=== PATIENT | male | born 1945 | race Caucasian/White ===

== ENCOUNTER 2016-11-08 12:33 | Inpatient (IN) | payer MEDICARE ==
[2016-11-08] MEDS ORDERED: LACTATED RINGERS 1,000 ML ONE (13:04)
[2016-11-08 13:16] LABS: ABSOLUTE NEUTROPHIL COUNT 14.1 K/mm3 (1.8-7.7); BASO % 0.2 % (0.2-1.0); HEMATOCRIT 43.4 % (32.0-52.0); IMM NEUT # 0.1 K/mm3 (0-0.2); IMM NEUT% 0.7 % (0-1); LYMPH # 0.3 (1.0-4.8); LYMPH % 1.8 % (15-45); MEAN CELL VOLUME 87.3 fl (80.0-94.0); MEAN CORPUSCULAR HEMOGLOBIN 30.2 pg (27.0-31.0); MEAN CORPUSCULAR HGB CONC 34.6 g/dl (33.0-37.0); MONO # 1.2 (0.0-0.8); MONO % 7.5 % (4-12); NEUT % 89.8 % (43-75); PLATELET COUNT 137 K/mm3 (130-400); RED CELL DISTRIBUTION WIDTH 14.2 % (11.5-14.5)
[2016-11-08 13:27] LABS: ALB/GLOB RATIO 1.4 (>1.0); ALBUMIN 3.9 gm/dL (3.5-5.7); CALCIUM 10.2 mg/dL (8.6-10.3)
[2016-11-08 13:30] LABS: TROPONIN I 0.05 ng/ml (0.0-0.06)
--- NOTE | 2016-11-08 13:40 | CT ---
HEAD W/O CON COMPARISON: Head CT, 10/24/2009 HISTORY: Altered level of consciousness. Found on floor. Fever. TECHNIQUE: Using a [employer] Aqu[employer] [address] scanner, images were obtained through the head. An automated dose reduction technique was used to minimize patient radiation dose. DOSE INFORMATION: CTDIvol (mGy): 51.70 DLP(mGycm): 938.90 FINDINGS: Mass: None Intracranial Hemorrhage: None Acute Infarction: None Cerebral hemispheres: Moderate atrophy has progressed compared to 2009. Low-attenuation in the white matter, extending from ventricle to the cortical surface in the right frontal lobe. Basal ganglia: Normal Thalami: Normal Brainstem: Normal Cerebellum: Normal Ventricles: Normal Basilar cisterns: Normal Corpus callosum: Normal Pituitary fossa: Normal Middle ears and mastoid air cells: Normal Orbits and sinuses: Normal orbits. Mucosal thickening in the ethmoid air cells. Skull and scalp: Normal Dural sinuses and vessels: Normal IMPRESSION: 1. No intracranial hemorrhage or cerebral edema. 2. Compared to 2009 CT, cerebral atrophy has progressed, now moderate. 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 3. Sinus mucosal disease, ethmoid sinuses. The report was sent to the emergency department [employer] medical record system 11/08/2016 at 13:42
--- NOTE | 2016-11-08 13:51 | RAD ---
CHEST - 2 VIEWS COMPARISON: Portable chest x-ray, 10/24/2009 HISTORY: Altered mental status. The patient was found down on the floor today and does not remember how he got there. FINDINGS: Views: Frontal and lateral chest Lungs: The lungs are clear and normal in volume. Heart and vessels: There is cardiomegaly with a dual-lead pacemaker. The pacemaker is new since 2008. Trachea and bronchi: Normal Mediastinum and joana: Normal Costophrenic sulci: Normal Chest wall and bones: Normal. Upper abdomen: Normal. IMPRESSION: Cardiomegaly without pulmonary edema. There is a dual-lead pacemaker.
[2016-11-08 14:05] LABS: INR 0.92; PROTHROMBIN TIME 9.7 SECONDS (9.3-11.4)
[2016-11-08] MEDS ORDERED: LIDOCAINE 2% UROJECT 10 ML ONE (14:12)
[2016-11-08 14:32] LABS: URINE BILIRUBIN NEGATIVE (NEGATIVE); URINE BLOOD 3+ (NEGATIVE); URINE GLUCOSE (UA) 3+ (NEGATIVE); URINE LEUKOCYTE ESTERASE NEGATIVE (NEGATIVE); URINE NITRITE NEGATIVE (NEGATIVE); URINE PROTEIN 2+ (NEGATIVE); URINE UROBILINOGEN NORMAL (0-1 mg/dl)
[2016-11-08 14:35] LABS: URINE APPEARANCE CLEAR; URINE COLOR YELLOW
[2016-11-08 14:41] LABS: URINE BACTERIA RARE; URINE EPITHELIAL CELLS 0-1 /hpf; URINE RBC 0-1 /hpf; URINE WBC NEG /hpf
[2016-11-08 15:07] LABS: TOTAL CELLS COUNTED 100
[2016-11-08 15:08] LABS: AMPHETAMINES/METHAMPHETAMINES NEGATIVE (NEGATIVE); COCAINE NEGATIVE (NEGATIVE); MARIJUANA NEGATIVE (NEGATIVE); METHADONE NEGATIVE (NEGATIVE); OPIATES NEGATIVE (NEGATIVE); TRICYCLIC ANTIDEPRESSANTS NEGATIVE (NEGATIVE)
[2016-11-08 15:11] LABS: ATYPICAL LYMPHOCYTE 1 %; BAND 13 % (0-10); BASOPHIL 0 % (0-1); EOSINOPHIL 0 % (1-3); LYMPHOCYTE 3 % (15-45); MONOCYTE 9 % (4-12); NEUTROPHILS 74 % (43-75); PLATELET ESTIMATE NORMAL (NORMAL)
[2016-11-08] MEDS ORDERED: SODIUM CHLORIDE 0.9% 100 ML IV PRN (16:40)
[2016-11-08] MEDS ORDERED: BISACODYL 10 MG SUP PR PRN (16:40)
[2016-11-08] MEDS ORDERED: MAGNESIUM HYDROXIDE 30 ML UDCUP PO PRN (16:40)
[2016-11-08] MEDS ORDERED: BLISTEX LIPSTICK 1 EACH TP PRN (16:40)
[2016-11-08] MEDS ORDERED: BISACODYL 5 MG TABLET.EC PO PRN (16:40)
[2016-11-08] MEDS ORDERED: MENTHOL/CETYLPYRD 1 EACH LOZENGE PO PRN (16:40)
[2016-11-08] MEDS ORDERED: SODIUM CHLORIDE 0.9% 1,000 ML IV SCH (16:45)
[2016-11-08] MEDS ORDERED: ONDANSETRON 4 MG/2ML 2 ML VIAL IV PRN (16:46)
[2016-11-08 17:00] VITALS: BMI 32.2
[2016-11-08] MEDS ORDERED: VANCOMYCIN HCL 0 G in SODIUM CHLORIDE 0.9% 250 ML IV SCH (17:00)
[2016-11-08] MEDS ORDERED: PUMP TUBING ONE (17:21)
[2016-11-08] MEDS: PIPERACILLIN-TAZO PREMIX BAG 3.375 G in Premix (D5W) 50 ml 1 EACH IV SCH ×2 (17:28→22:50)
[2016-11-08] MEDS: PANTOPRAZOLE SODIUM 40 MG VIAL IV SCH (17:32)
[2016-11-08] MEDS: INSULIN GLARGINE (DOSE) 100 UNITS/ML UNIT SUB-Q SCH (17:52)
[2016-11-08 18:04] LABS: ARTERIAL BLOOD GAS pH 7.464 (7.350-7.450)
[2016-11-08 18:05] LABS: ARTERIAL BLOOD GAS BASE EXCESS -2.6 mmol/L (-2.0-2.0); ARTERIAL BLOOD GAS HCO3 19.7 mmol/L (22.0-28.0); ARTERIAL BLOOD GAS PCO2 28.1 mmHg (35.0-45.0); ARTERIAL BLOOD GAS PO2 61.1 mmHg (80.0-90.0)
[2016-11-08] MEDS: LISINOPRIL 20 MG TABLET PO SCH (18:09)
[2016-11-08] MEDS: SODIUM CHLORIDE 0.9% 1,000 ML IV SCH (18:45)
[2016-11-08] MEDS: FLECAINIDE ACETATE 50 MG TABLET PO SCH (19:01)
[2016-11-08] MEDS: VANCOMYCIN HCL 1.25 G in SODIUM CHLORIDE 0.9% 250 ML IV SCH (19:01)
--- NOTE | 2016-11-08 19:53 | HP ---
ABRAHAM ADLER [id number] ADMIT DATE: 11/08/2016 CHIEF COMPLAINT: Altered mental status. 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 This morning at about 10:00 A.M. he was found on the carpet in the basement of their home by his . He had been last seen at about 8:00 P.M. the night before. He has been making a habit in the last few weeks of sleeping in his recliner in the basement instead of coming to bed ever since he had his pacer put in about a month ago. It was not unusual for the to not have seen him at bedtime or to have seen him first thing in the morning. When she had not seen him throughout most of the morning, however, she came down to check on him and found him on the ground. He was conscious, though seemed to be a bit lethargic and not quite himself. He felt a little bit warm, but it is unclear whether he had a true fever. He was brought to the emergency room for evaluation. In the ER he was worked-up and found to be altered, but to have no other obvious acute findings noted in the ER, other than an elevated CPK was noted, and there was concern that he may have mild rhabdomyolysis. It was elected at this point to admit him to the Hospitalist Service for further workup. REVIEW OF SYSTEMS: He complains of no headache, no visual symptoms and no difficulty swallowing. No chest pain, no shortness of breath, no cough and no heart palpitations. No abdominal pain. No change in bowel or bladder habits. No extremity weakness, numbness tingling or swelling. PAST MEDICAL HISTORY: 1. Diabetes mellitus Type-2. He is on fairly aggressive therapy, including insulin, though his sugars have been a bit [id number] lately. This was complicated by neuropathy and nephropathy as per the clinic chart. 2. Hypertension, difficult to control. He is on multiple different medications. 3. Atrial fibrillation, diagnosed just two months ago on in August of 2016. 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 This was just performed one month ago in September of 2016. 4. 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 5. Chronic kidney disease Stage-3. 6. History of encephalitis of unclear etiology back in 2008. He was initially admitted here and then transferred to [facility]. A complete neurologic workup was unremarkable. His states that his current presentation is very similar to what it was back in 2008. PAST SURGICAL HISTORY: 1. Transmetatarsal amputation of the right foot in December of 2014. 2. Appendectomy in the distant past. 3. Colonoscopy in the distant past. 4. Large left inguinal hernia repair done on 08/30/[address] Ray here at our hospital. ALLERGIES: Cat dander and pollen. CURRENT MEDICATIONS: 1. Metformin 1,000 mg by mouth twice a day. 2. [place] one to two every four hours as needed. 3. Imdur 60 mg by mouth every A.M. 4. Flecainide 50 mg by mouth every 12 hours. 5. Diltiazem CD 180 mg by mouth every day. 6. Eliquis 5 mg by mouth twice a day. 7. CoQ10 one tablet by mouth every day. 8. Lisinopril 20 mg by mouth twice a day. 9. Invokana 100 mg by mouth every day.. 10. Lantus 40 units sub-Q at bedtime. 11. Hydrochlorothiazide 25 mg by mouth every day. 12. Glucotrol 10 mg by mouth every A.M. 13. Amlodipine 10 mg by mouth twice a day. FAMILY HISTORY: Father had CAD. Mother had Alzheimer's disease and CAD. Multiple family members with diabetes. SOCIAL HISTORY: He is and lives at home with his . He has two grown children. 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 He drinks anywhere from two to four glasses of wine per day. Primary care doctor is Dr. Ayala. No tobacco or drug use. OBJECTIVE: VITAL SIGNS: In the ER he was afebrile, with a temperature of 99.5. Blood pressure 185/75. Pulse is 117 and regular. Respirations 24. His O2 is 93% on room air. GENERAL: This is a well-developed and well-nourished elderly male. He is alert, though lethargic. He is able to answer questions. He has obvious rigorous shaking. HEENT: Normocephalic, atraumatic. TMs are clear. Sclera are clear. Pupils equal, round and reactive to light. There is no nystagmus. Oropharynx is moist. No lesions. NECK: Supple, with no JVD. LUNGS: Clear, with no wheezes, rales or rhonchi. HEART: Regular rate and rhythm. No murmurs or gallops. ABDOMEN: Soft, nontender and nondistended. No rebound or guarding. EXTREMITIES: Right lower extremity is erythematous and warm to the touch over the entire gottlieb. Post-amputation changes to the right foot noted, with no disruption of the surgical site. Redness and warmth goes to just inferior to the knee. He is noted to have an abrasion on the left kneecap, though this appears to be shallow, with no surrounding redness. LABS: CBC; white count 15.7, with 74% neutrophils, 13% bands, 3% lymphs, 9% monocytes and zero percent eosinophils. Hemoglobin 15.0, hematocrit 43.4 and platelets of 137. Chemistry panel; sodium 138, potassium 4.2, chloride 104, carbon dioxide 26, BUN of 37, creatinine 1.3 and glucose of 140. Total bilirubin 0.6, AST of 27, ALT of 15 and alkaline phosphatase of 51. CPK of 1,299 and CK-MB of 4.0. Troponin of 0.05. INR is 0.92. Urinalysis; 2+ protein, 3+ glucose, 3+ blood, negative ketones, negative bilirubin, normal urobilinogen and negative leukocyte esterase. Urine drug screen is negative. Influenza A and B are negative. EKG: Shows normal sinus rhythm, with a rate of 98 beats per minute. IMAGIN. Head CT with no acute findings. No hemorrhage and no edema. He is noted to have an old infarct in the watershed area between the right anterior and right middle cerebral artery distributions. 2. Chest x-ray; normal cardiac silhouette. No infiltrates or effusions. A pacemaker is in place. ASSESSMENT: 1. Right lower extremity cellulitis. 2. Severe sepsis secondary to above. 3. Altered mental status/metabolic encephalopathy secondary to above. 4. Mild rhabdomyolysis secondary to being down for an unknown length of time. 5. Diabetes mellitus Type-2. 6. Hypertension, with a history of poor control. 7. History of recent diagnosis of atrial fibrillation, with tachy-grazyna syndrome, now status post pacer placement one month ago, and no evidence of complications. 8. Stable CAD, with no evidence of ACS. PLAN: [place] [facility] Unfortunately the sepsis diagnosis was not apparent until he was already moved out of the emergency room. We will draw blood cultures. Draw repeat lactate. He did receive aggressive IV fluid bolus in the ER, and we will continue this here. He is not hypotensive, however, his severe sepsis is manifested by his tachycardia, elevated white count with a left shift, heart rate greater than 90, as well as encephalitis/altered mental status. His lactate has not been drawn; this is pending at the time of this dictation. We will go ahead and start him on Zosyn and vancomycin. To complete his workup, I am going to check an ABG, as well as an ammonia. We will check serial cardiac enzymes given his cardiac history. For his diabetes, we will hold his usual medications and place him on basal bolus protocol. For the presumed rhabdomyolysis, we will continue with IV fluid rehydration and reevaluate lab work in the morning. DVT prophylaxis; the patient is on Eliquis, and will continue with this. Further care is dictated by clinical course. cc: Dr. Deep Villa
[2016-11-08] MEDS: APIXABAN 5 MG TABLET PO SCH (20:48)
[2016-11-09] MEDS: SODIUM CHLORIDE 0.9% 1,000 ML IV SCH ×4 (00:35→19:00)
[2016-11-09] MEDS: PIPERACILLIN-TAZO PREMIX BAG 3.375 G in Premix (D5W) 50 ml 1 EACH IV SCH ×4 (04:29→22:46)
[2016-11-09 05:38] LABS: ABSOLUTE NEUTROPHIL COUNT 10.3 K/mm3 (1.8-7.7); BASO % 0.3 % (0.2-1.0); HEMATOCRIT 40.9 % (32.0-52.0); HEMOGLOBIN 13.9 gm/l (14.0-18.0); IMM NEUT # 0.1 K/mm3 (0-0.2); IMM NEUT% 0.4 % (0-1); LYMPH # 0.5 (1.0-4.8); LYMPH % 4.7 % (15-45); MEAN CELL VOLUME 87.6 fl (80.0-94.0); MEAN CORPUSCULAR HEMOGLOBIN 29.8 pg (27.0-31.0); MEAN PLATELET VOLUME 10.5 fl (7.4-10.4); MONO # 0.6 (0.0-0.8); MONO % 5.6 % (4-12); PLATELET COUNT 115 K/mm3 (130-400); RED CELL DISTRIBUTION WIDTH 14.6 % (11.5-14.5)
[2016-11-09 05:58] LABS: ALB/GLOB RATIO 1.1 (>1.0); ALBUMIN 3.1 gm/dL (3.5-5.7)
[2016-11-09] MEDS: ACETAMINOPHEN 325 MG TABLET PO PRN ×2 (06:05→15:11)
[2016-11-09] MEDS: VANCOMYCIN HCL 1.25 G in SODIUM CHLORIDE 0.9% 250 ML IV SCH ×2 (07:58→19:32)
[2016-11-09] MEDS: FLECAINIDE ACETATE 50 MG TABLET PO SCH ×3 (08:28→20:37)
[2016-11-09] MEDS: LISINOPRIL 20 MG TABLET PO SCH ×2 (09:13→20:37)
[2016-11-09] MEDS: DILTIAZEM HCL CD 180 MG CAPSULE PO SCH (09:13)
[2016-11-09] MEDS: APIXABAN 5 MG TABLET PO SCH ×2 (09:14→20:37)
[2016-11-09] MEDS: ISOSORBIDE MONONITRATE 60 MG TAB.SR PO SCH (09:14)
--- NOTE | 2016-11-09 10:39 | PDOC43 ---
- Subjective Chief Complaint: AMS Awake this AM. Tired but at baseline MS otherwise. No c/o's. Fever to 101.8 overnight. Subjective: Reports Pain Tolerable, Reports Tolerating Diet Well, Reports Adequate Oral Intake, Denies Shortness of Breath, Denies Cough, Denies Chest Pain, Denies Abdominal Pain, Denies Nausea, Denies Vomiting - Objective Vital Signs Temperature 100.2 F 11/09/16 07:03 Pulse Rate 152 11/09/16 08:00 Respiratory Rate 19 11/09/16 07:03 Blood Pressure 180/61 11/09/16 07:03 O2 Saturation by Pulse Oximetry 79 11/09/16 08:00 Oxygen Delivery Method Room Air Oxygen Flow Rate 0 Intake and Output 11/08/16 11/09/16 11/10/16 06:59 06:59 06:59 Intake Total 6401 1000 Output Total 6520 Balance -119 1000 General: Alert, Oriented x3, Cooperative, Other (Tired.) HEENT: Atraumatic, PERRLA, EOMI, Mucous membr. moist/pink Lungs: Clear to Auscultation Bilaterally Cardiovascular: Irregular Abdomen: Soft, Normal Bowel Sounds, Non-Distended, No Tenderness Extremities: Normal Pulses, Other (RLE erythema/warmth improved since admit.) Laboratory 11/09/16 05:20 11/09/16 05:20 11/08/16 11/08/16 11/08/16 12:45 13:20 18:09 VBG Lactate 0.8 Creatine Kinase 1299 H Troponin I 0.05 Influenza A (Rapid) Negative Influenza B (Rapid) Negative 11/08/16 11/09/16 20:50 05:20 VBG Lactate 0.8 0.8 Creatine Kinase 2159 H Troponin I 0.13 H Influenza A (Rapid) Influenza B (Rapid) Current Medications: Current meds reviewed in EMR. - Problems: Assessment/Plan (1) Cellulitis Qualifiers: Site of cellulitis of extremity: lower extremity Laterality: right Status: Acute Assessment/Plan: RLE cellulitis on same limb as previous MT amputation for osteo (2014). Associated with severe sepsis and metabolic encephalopathy. Sepsis and encephalopathy appear resolved this AM. Cellulitis improved. All cx still pending. Con't current abx- Zosyn/Vanco. (2) Sepsis Qualifiers: Sepsis type: sepsis due to unspecified organism Qualifier Code: (A41.9 ) Sepsis, unspecified organism Status: Acute Assessment/Plan: Met criteria for severe sepsis at admit- not recognized initially in ER. Appears resolved this AM as above. (3) Metabolic encephalopathy Status: Acute Assessment/Plan: Resolved. As above. Similar episode of unclear etiology in 2008- transferred to [facility] at that time with extensive work-up and no etiology found. (4) Rhabdomyolysis Status: Acute Assessment/Plan: Appears to be mild with no complications. CPK up to 2100 this AM. Con't IVF and follow. (5) Atrial fibrillation Qualifiers: Atrial fibrillation type: chronic Qualifier Code: (I48.2) Chronic atrial fibrillation Status: Chronic Assessment/Plan: Chronic A fib just dx'ed in 09/12. Now s/p pacer in 10/12 (4 weeks ago). Appears stable. (6) DM2 (diabetes mellitus, type 2) Qualifiers: Chronic kidney disease stage: stage 3 (moderate) Status: Chronic Assessment/Plan: Stable. Con't basal/bolus. (7) Hypertension Qualifiers: Hypertension type: essential hypertension Qualifier Code: (I10) Essential (primary) hypertension Status: Chronic Assessment/Plan: History of difficult to control. Plan to resume usual regimen as tolerated. (8) CKD (chronic kidney disease) stage 3, GFR 30-59 ml/min Status: Chronic Assessment/Plan: At baseline. Supportive care. VTE Prophylaxis: Eliquis. Disposition: Anticipate d/c home in 2-3 days.
[2016-11-09] MEDS: LIDOCAINE 2% UROJECT 10 ML UR ONE ×2 (11:14→16:58)
[2016-11-09] MEDS ORDERED: LIDOCAINE 2% UROJECT 10 ML ONE (16:47)
[2016-11-09] MEDS: PANTOPRAZOLE SODIUM 40 MG VIAL IV SCH (16:58)
[2016-11-09] MEDS: INSULIN GLARGINE (DOSE) 100 UNITS/ML UNIT SUB-Q SCH ×2 (18:44→19:51)
[2016-11-09] MEDS: AMLODIPINE BESYLATE 5 MG TABLET PO SCH (20:37)
[2016-11-10] MEDS: SODIUM CHLORIDE 0.9% 1,000 ML IV SCH ×3 (00:49→16:13)
[2016-11-10] MEDS: PIPERACILLIN-TAZO PREMIX BAG 3.375 G in Premix (D5W) 50 ml 1 EACH IV SCH ×4 (04:19→22:15)
[2016-11-10 05:46] LABS: ABSOLUTE NEUTROPHIL COUNT 6.7 K/mm3 (1.8-7.7); BASO % 0.4 % (0.2-1.0); EOS % 0.4 % (0.9-2.9); HEMATOCRIT 37.5 % (32.0-52.0); HEMOGLOBIN 12.7 gm/l (14.0-18.0); IMM NEUT # 0.1 K/mm3 (0-0.2); IMM NEUT% 1.3 % (0-1); LYMPH # 0.8 (1.0-4.8); LYMPH % 9.2 % (15-45); MEAN CELL VOLUME 88.7 fl (80.0-94.0); MEAN CORPUSCULAR HGB CONC 33.9 g/dl (33.0-37.0); MEAN PLATELET VOLUME 11.2 fl (7.4-10.4); MONO # 0.7 (0.0-0.8); MONO % 8.4 % (4-12); NEUT % 80.3 % (43-75); PLATELET COUNT 99 K/mm3 (130-400); RED CELL DISTRIBUTION WIDTH 14.4 % (11.5-14.5)
[2016-11-10 05:50] LABS: ALBUMIN 2.7 gm/dL (3.5-5.7); CALCIUM 8.6 mg/dL (8.6-10.3)
[2016-11-10] MEDS ORDERED: IV START KIT ONE (05:56)
[2016-11-10] MEDS ORDERED: SODIUM CHLORIDE 0.9% FLUSH 10 ML ONE (05:56)
[2016-11-10 07:52] LABS: VANCOMYCIN TROUGH 9.4 ug/ml (5.0-10.0)
[2016-11-10] MEDS: VANCOMYCIN HCL 1.25 G in SODIUM CHLORIDE 0.9% 250 ML IV SCH (08:27)
[2016-11-10] MEDS: LISINOPRIL 20 MG TABLET PO SCH ×2 (08:56→21:14)
[2016-11-10] MEDS: APIXABAN 5 MG TABLET PO SCH ×2 (08:56→21:12)
[2016-11-10] MEDS: AMLODIPINE BESYLATE 5 MG TABLET PO SCH ×3 (08:56→21:15)
[2016-11-10] MEDS: ISOSORBIDE MONONITRATE 60 MG TAB.SR PO SCH (08:57)
[2016-11-10] MEDS: DILTIAZEM HCL CD 180 MG CAPSULE PO SCH (08:57)
[2016-11-10] MEDS: FLECAINIDE ACETATE 50 MG TABLET PO SCH ×2 (08:57→21:17)
[2016-11-10] MEDS ORDERED: SODIUM CHLORIDE 0.9% IV ONE ×3 (10:00)
[2016-11-10] MEDS ORDERED: VANCOMYCIN HCL IV ONE ×3 (10:00)
--- NOTE | 2016-11-10 10:54 | PDOC43 ---
- Subjective Chief Complaint: AMS complains of diarrhea Subjective: Reports Tolerating Diet Well, Denies Fever - Objective Vital Signs Temperature 98.9 F 11/10/16 07:00 Pulse Rate 69 11/10/16 07:00 Respiratory Rate 22 11/10/16 07:00 Blood Pressure 164/71 11/10/16 07:00 O2 Saturation by Pulse Oximetry 98 11/10/16 07:00 Oxygen Delivery Method Room Air Oxygen Flow Rate 0 Intake and Output 11/09/16 11/10/16 11/11/16 06:59 06:59 06:59 Intake Total 6401 5892 500 Output Total 6520 2800 Balance -119 3092 500 General: Alert, Oriented x3, Cooperative, No Acute Distress HEENT: Mucous membr. moist/pink Lungs: Clear to Auscultation Bilaterally Cardiovascular: Regular Rate and Rhythm Abdomen: Soft, Normal Bowel Sounds, Non-Distended, No Tenderness Extremities: No Edema Peripheral Pulses: Dorsalis Pedis (L): 2+, Dorsalis Pedis (R): 2+ Skin: Erythema (of right lower ext. is improving, no open wounds or drainage) Laboratory 11/10/16 05:15 11/10/16 07:20 11/10/16 11/09/16 05:15 19:48 RBC 4.23 L Anion Gap 6 L POC Capillary Glucose 167 H AST 53 H Creatine Kinase 1377 H Total Protein 5.4 L Albumin 2.7 L % Immature Granulocyt 1.3 H Current Medications: Current meds reviewed in EMR. - Problems: Assessment/Plan (1) Cellulitis Qualifiers: Site of cellulitis of extremity: lower extremity Laterality: right Status: Acute Assessment/Plan: Prsumed bacterial, organism not identified. RLE cellulitis on same limb as previous MT amputation for osteo (2015). Associated with severe sepsis and metabolic encephalopathy. Sepsis and encephalopathy appear resolved. Cellulitis improved. All cx still pending. Cont. abx- Zosyn but will stop Vanco and follow. (2) Rhabdomyolysis Status: Acute Assessment/Plan: Appears to be mild with no complications. CPK down to 1377 this AM. Stop IVF and follow. (3) Atrial fibrillation Qualifiers: Atrial fibrillation type: chronic Qualifier Code: (I48.2) Chronic atrial fibrillation Status: Chronic Assessment/Plan: Chronic A fib just dx'ed in 09/12. Now s/p pacer in 10/12 (4 weeks ago). Anticoagulated on Eliquis, rate controlled with diltiazem and flecainide. Appears stable. (4) DM2 (diabetes mellitus, type 2) Qualifiers: Chronic kidney disease stage: stage 3 (moderate) Status: Chronic Assessment/Plan: Stable. Cont. basal/bolus. (5) Hypertension Qualifiers: Hypertension type: essential hypertension Qualifier Code: (I10) Essential (primary) hypertension Status: Chronic Assessment/Plan: History of difficult to control. Plan to resume usual regimen as tolerated. (6) CKD (chronic kidney disease) stage 3, GFR 30-59 ml/min Status: Chronic Assessment/Plan: At baseline. Supportive care. VTE Prophylaxis: Eliquis. Disposition: Anticipate d/c home in 1-2 days. Stopped Vanco and will need to follow to make sure cellulitis cont. to improve. Will move to Med/Surg.
[2016-11-10] MEDS: PANTOPRAZOLE SODIUM 40 MG VIAL IV SCH (17:01)
[2016-11-10] MEDS: INSULIN ASPART (DOSE) 100 UNITS/1 ML SUB-Q PRN ×2 (18:11→22:57)
[2016-11-10] MEDS: INSULIN GLARGINE (DOSE) 100 UNITS/ML UNIT SUB-Q SCH (20:19)
[2016-11-10] MEDS ORDERED: VANCOMYCIN HCL 1.75 G in SODIUM CHLORIDE 0.9% 500 ML IV SCH (22:30)
[2016-11-11] MEDS: AMLODIPINE BESYLATE 5 MG TABLET PO SCH ×2 (02:41→09:03)
[2016-11-11] MEDS: PIPERACILLIN-TAZO PREMIX BAG 3.375 G in Premix (D5W) 50 ml 1 EACH IV SCH (05:17)
[2016-11-11 06:28] LABS: BASO # 0.1 K/mm3 (0.0-0.2); BASO % 0.7 % (0.2-1.0); EOS # 0.2 (0.0-0.5); EOS % 2.4 % (0.9-2.9); HEMATOCRIT 42.9 % (32.0-52.0); HEMOGLOBIN 13.9 gm/l (14.0-18.0); IMM NEUT% 0.3 % (0-1); LYMPH # 0.9 (1.0-4.8); LYMPH % 13.3 % (15-45); MEAN CELL VOLUME 90.7 fl (80.0-94.0); MEAN CORPUSCULAR HEMOGLOBIN 29.4 pg (27.0-31.0); MEAN CORPUSCULAR HGB CONC 32.4 g/dl (33.0-37.0); MEAN PLATELET VOLUME 10.4 fl (7.4-10.4); MONO # 0.8 (0.0-0.8); MONO % 11.6 % (4-12); NEUT % 71.7 % (43-75); PLATELET COUNT 126 K/mm3 (130-400)
[2016-11-11 06:55] LABS: CALCIUM 9.4 mg/dL (8.6-10.3)
[2016-11-11 07:49] VITALS: BP 136/66
[2016-11-11] MEDS: APIXABAN 5 MG TABLET PO SCH (09:02)
[2016-11-11] MEDS: ISOSORBIDE MONONITRATE 60 MG TAB.SR PO SCH (09:02)
[2016-11-11] MEDS: DILTIAZEM HCL CD 180 MG CAPSULE PO SCH (09:02)
[2016-11-11] MEDS: FLECAINIDE ACETATE 50 MG TABLET PO SCH (09:02)
[2016-11-11] MEDS: LISINOPRIL 20 MG TABLET PO SCH (09:02)
[2016-11-11] MEDS: INSULIN ASPART (DOSE) 100 UNITS/1 ML SUB-Q PRN (09:03)
[2016-11-11] MEDS ORDERED: AMOX 875 MG/CLAV 125 MG 1 EACH TABLET PO SCH (09:30)
--- NOTE | 2016-11-11 12:17 | DS ---
TAM ADLER DATE OF ADMISSION: November 08, 2016 DATE OF DISCHARGE: November 11, 2016 DISCHARGE DIAGNOSES: 1. Acute metabolic encephalopathy. 2. Right lower extremity bacterial cellulitis. 3. Severe sepsis, organism unknown. 4. Mild rhabdomyolysis. 5. Adult onset diabetes treated with insulin with complications of neuropathy and nephropathy. 6. Chronic essential hypertension. 7. Chronic stage 3 kidney disease. 8. Chronic atrial fibrillation with a pacemaker. 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 He was found on the floor of his home by his . He was brought to the emergency department by ambulance. He had a low-grade temperature, tachycardia with a heart rate of 117, white blood cell count elevate at 15.7 with 13% bands. Creatinine was 1.3 with a BUN of 37 and normal electrolytes. CPK was elevated at 1299. Influenza screen and drug screen were negative. CT of the head showed no acute findings. Chest x-ray was also negative. He showed evidence of a right lower extremity cellulitis. He was admitted to the intermediate care unit. He was treated with Zosyn and vancomycin. He was aggressively hydrated. He showed rapid improvement. White blood cell count improved to normal by November 10, 2016. He showed good urine output and stable renal function. He had a fever up to 101.3 on November 09, 2016 at 3:00 p.m. but was afebrile after that. He was felt to be medically stable for discharge on November 11, 2016. He was taken off of his vancomycin on November 10, 2016 and monitored overnight with continued improvement seen. PHYSICAL EXAM: VITAL SIGNS: His discharge vital signs showed a temperature of 99.4, pulse 67, blood pressure is 136/66, respirations 16, oxygen saturation 99% on room air. Body mass index 32.1. Weight is 113.4 kilograms. GENERAL: This is a slightly obese male in no acute distress. HEENT: Is unremarkable. LUNGS: Are clear to auscultation bilaterally. CARDIOVASCULAR: Exam reveals a regular rate and rhythm without a murmur. ABDOMEN: Is soft, nontender, nondistended with positive bowel sounds. EXTREMITIES: Lower extremities show some hyperpigmented areas on the anterior aspect of both lower extremities. He has diffuse erythema in the right lower extremity from the ankle to just below the knee. This is showing regression from the marked skin lines. There are no areas of fluctuance, no tenderness and no increased warmth at this point. Just some mild residual erythema. He has a transmetatarsal amputation of the right foot. No lesions on the bottom of the feet. Dorsalis pedis pulses are 2+ in both feet. LABORATORY STUDIES: CBC showed a white count of 7, hemoglobin 13.9, platelet count of 126,000 and normal differential. Chemistry profile showed a sodium 133, potassium 3.7, BUN 21, creatinine 1.1 when last checked on November 10. DISPOSITION: Home. DISCHARGE CONDITION: Good. DISCHARGE MEDICATIONS: 1. He is prescribed Augmentin. He will take 875 mg twice daily for 14 days. 2. He is going to continue with Norvasc 10 mg twice daily. 3. Glucotrol 10 mg daily in the morning. 4. Hydrochlorothiazide 25 mg daily. 5. Lantus insulin 40 units subcutaneous at bedtime. 6. Invokana 100 mg orally daily. 7. Lisinopril 20 mg orally twice daily. 8. Co-enzyme Q10 one tablet daily. 9. Eliquis 5 mg orally twice daily. 10. Cardizem CD 180 mg orally daily. 11. Flecainide 50 mg orally every 12 hours. 12. Isosorbide mononitrate 60 mg orally in the morning. 13. [place] one to two every four hours as needed for pain. 14. Metformin 1000 mg twice daily. FOLLOWUP: He will follow up with his primary care provider, Dr. Deep Ayala, as needed. Cc: Deep Ayala M.D.
== END 2016-11-11 10:30 | disposition home or self-care (01) | DRG 871 ==
LOC: ED 12:33 → ICU 14:15 → MS 11-10 19:39
PROVIDERS: ADMIT Family Medicine; ATTEND Family Medicine
DX: A41.9 Sepsis, unspecified organism (principal); G93.41 Metabolic encephalopathy; Z94.0 Kidney transplant status; M86.9 Osteomyelitis, unspecified; L03.115 Cellulitis of right lower limb; M62.82 Rhabdomyolysis; Z79.4 Long term (current) use of insulin; E11.21 Type 2 diabetes mellitus with diabetic nephropathy; E11.40 Type 2 diabetes mellitus with diabetic neuropathy, unspecified; I12.9 Hypertensive chronic kidney disease with stage 1 through stage 4 chronic kidney disease, or unspecified chronic kidney disease; E11.22 Type 2 diabetes mellitus with diabetic chronic kidney disease; N18.3 Chronic kidney disease, stage 3 (moderate); I48.91 Unspecified atrial fibrillation; Z95.0 Presence of cardiac pacemaker; Z79.84 Long term (current) use of oral hypoglycemic drugs

== ENCOUNTER 2016-12-13 19:33 | Inpatient (IN) | payer MEDICARE ==
--- NOTE | 2016-12-13 20:36 | CT ---
EXAMINATION: Noncontrast cranial CT. CLINICAL INDICATION: Severe headache. On blood thinners. TECHNIQUE: A noncontrast cranial CT scan was obtained. Axial images were acquired from just above the vertex through the skull base. 4 mm stacked axial, coronal, and sagittal reconstructions were reviewed. COMPARISONS: Exam dated 11/08/2016. FINDINGS: The CSF containing spaces are prominent throughout. There is diminished attenuation within the periventricular white matter tracts bilaterally. No acute intercranial hemorrhage, mass or mass effect is identified. No extra-axial fluid collections are detected. The visualized segments of the posterior fossa are unremarkable. The cerebellar pontine angle cisterns are symmetric. The osseous structures are intact. The paranasal sinuses are clear. The visualized portions of the orbits are unremarkable. The mastoid sinuses are normal and symmetric. IMPRESSION: Global diffuse atrophy with microvascular ischemic changes. No acute intracranial abnormalities are identified. The findings were uploaded to the electronic medical record for review at approximately 8:34 PM 12/13/2016
[2016-12-13] MEDS ORDERED: METOCLOPRAMIDE HCL 5 MG/ML 2ML VIAL ONE (20:44)
[2016-12-13] MEDS ORDERED: SODIUM CHLORIDE 0.9% 500 ML ONE ×2 (20:44→21:32)
[2016-12-13] MEDS ORDERED: MORPHINE SULFATE 4 MG/ML SYRINGE ONE ×2 (20:45→21:32)
[2016-12-13] MEDS ORDERED: DIPHENHYDRAMINE HCL 50 MG/1 ML VIAL ONE (20:45)
[2016-12-13 20:46] LABS: ABSOLUTE NEUTROPHIL COUNT 7.7 K/mm3 (1.8-7.7); BASO % 0.4 % (0.2-1.0); EOS # 0.1 (0.0-0.5); EOS % 0.8 % (0.9-2.9); HEMATOCRIT 40.8 % (32.0-52.0); HEMOGLOBIN 14.1 gm/l (14.0-18.0); IMM NEUT% 0.4 % (0-1); LYMPH # 1.5 (1.0-4.8); LYMPH % 14.4 % (15-45); MEAN CELL VOLUME 86.6 fl (80.0-94.0); MEAN CORPUSCULAR HEMOGLOBIN 29.9 pg (27.0-31.0); MEAN CORPUSCULAR HGB CONC 34.6 g/dl (33.0-37.0); MEAN PLATELET VOLUME 10.1 fl (7.4-10.4); MONO # 0.7 (0.0-0.8); MONO % 7.3 % (4-12); NEUT % 76.7 % (43-75); PLATELET COUNT 211 K/mm3 (130-400); RED CELL DISTRIBUTION WIDTH 12.5 % (11.5-14.5)
[2016-12-13 21:06] LABS: ALB/GLOB RATIO 1.1 (>1.0); ALBUMIN 3.8 gm/dL (3.5-5.7); CALCIUM 10.2 mg/dL (8.6-10.3)
[2016-12-13] MEDS ORDERED: ONDANSETRON 4 MG/2ML 2 ML VIAL ONE (21:32)
[2016-12-13] MEDS ORDERED: OXYMETAZOLINE HCL 0.05% 30 SPRAYS/BOT NS ONE (22:10)
[2016-12-13] MEDS ORDERED: HYDROMORPHONE HCL 1 MG/ML SYRINGE ONE ×2 (22:10→23:04)
[2016-12-13] MEDS ORDERED: DEXAMETHASONE SOD PHOS 10 MG/1 ML VIAL ONE (23:04)
[2016-12-13 23:17] LABS: SPECIFIC GRAVITY 1.015 (1.001-1.030); URINE BILIRUBIN NEGATIVE (NEGATIVE); URINE BLOOD TRACE (NEGATIVE); URINE GLUCOSE (UA) 3+ (NEGATIVE); URINE LEUKOCYTE ESTERASE NEGATIVE (NEGATIVE); URINE NITRITE NEGATIVE (NEGATIVE); URINE PROTEIN 2+ (NEGATIVE); URINE UROBILINOGEN NORMAL (0-1 mg/dl)
[2016-12-13 23:21] LABS: URINE APPEARANCE CLEAR; URINE COLOR STRAW
[2016-12-13 23:22] LABS: URINE BACTERIA 0; URINE EPITHELIAL CELLS 0 /hpf; URINE RBC 0-2 /hpf; URINE WBC 0-2 /hpf
[2016-12-14] MEDS ORDERED: HYDROMORPHONE HCL 1 MG/ML SYRINGE ONE (00:07)
[2016-12-14] MEDS ORDERED: BLISTEX LIPSTICK 1 EACH TP PRN (00:50)
[2016-12-14] MEDS ORDERED: MENTHOL/CETYLPYRD 1 EACH LOZENGE PO PRN (00:50)
[2016-12-14] MEDS ORDERED: SODIUM CHLORIDE 0.9% 100 ML IV PRN (00:50)
[2016-12-14] MEDS ORDERED: SODIUM CHLORIDE 0.9% FLUSH 10 ML ONE (00:52)
[2016-12-14] MEDS ORDERED: ONDANSETRON 4 MG/2ML 2 ML VIAL IV PRN (00:52)
[2016-12-14] MEDS ORDERED: INSULIN ASPART (DOSE) 100 UNITS/1 ML SUB-Q PRN (00:53)
[2016-12-14] MEDS ORDERED: SODIUM CHLORIDE 0.9% 500 ML IV SCH (01:00)
[2016-12-14] MEDS ORDERED: PUMP TUBING ONE (01:50)
[2016-12-14] MEDS: SODIUM CHLORIDE 0.9% 1,000 ML IV SCH ×2 (01:57→17:13)
[2016-12-14] MEDS: INSULIN GLARGINE (DOSE) 100 UNITS/ML UNIT SUB-Q SCH (01:58)
[2016-12-14 07:02] LABS: ABSOLUTE NEUTROPHIL COUNT 8.1 K/mm3 (1.8-7.7); BASO % 0.2 % (0.2-1.0); HEMATOCRIT 45.7 % (32.0-52.0); HEMOGLOBIN 15.7 gm/l (14.0-18.0); IMM NEUT% 0.4 % (0-1); LYMPH # 0.8 (1.0-4.8); LYMPH % 9.2 % (15-45); MEAN CELL VOLUME 86.1 fl (80.0-94.0); MEAN CORPUSCULAR HEMOGLOBIN 29.6 pg (27.0-31.0); MEAN CORPUSCULAR HGB CONC 34.4 g/dl (33.0-37.0); MEAN PLATELET VOLUME 9.8 fl (7.4-10.4); MONO # 0.1 (0.0-0.8); NEUT % 89.2 % (43-75); PLATELET COUNT 223 K/mm3 (130-400); RED CELL DISTRIBUTION WIDTH 12.5 % (11.5-14.5)
--- NOTE | 2016-12-14 07:06 | HP ---
Abraham Bedoya ADMIT DATE: 12/14/2016 CHIEF COMPLAINT: Headache. HISTORY OF PRESENT ILLNESS: Abraham is a 71-year-old male with a relatively complicated previous medical history (see below). He was recently admitted to our hospital last month with encephalitis as a result of cellulitis and sepsis. Shortly after recovering from that he developed a pseudomonas eye infection. He has been under the care of ophthalmology up at [facility]. He is on multiple different antibiotic drops including vancomycin, tobramycin, etc. In the last several days he has been developing a more severe right sided headache around the eye. He was just seen by his coin machine servicer repairer earlier in the day on 12/13/2016, however, his headache got significantly worse in the last evening hours of 12/13/2016, so he presented to the emergency room for evaluation. In the emergency room, he was worked up with a head CT and lab workup. Lab workup was unremarkable with the exception of a bump in his creatinine up to 2.1 with his baseline being closer to the low 1's. His head CT was unremarkable. Emergency room doctor did discuss the case with Dr. Thompson. She is the coin machine servicer repairer covering for the patient's regular coin machine servicer repairer Dr. Thorpe and she apparently reviewed the chart and felt that he most likely had ophthalmitis related to infection and irritation from his Tobradex and vancomycin drops. She recommended supportive care overnight with pain medications and fluids with plans to have Dr. Thorpe contact us in the morning. We have therefore elected to admit him to the hospitalist service. REVIEW OF SYSTEMS: As noted above otherwise, negative. PAST MEDICAL HISTORY: 1. 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 2. Hypertension. 3. Atrial fibrillation diagnosed 08/2016. He ended up with bradycardia and ended up getting a pacer placement for tachy-grazyna syndrome in 09/2016. 4. History of osteomyelitis to the right foot secondary to diabetes status post amputation. 5. Chronic kidney disease stage III, baseline creatinine between 1.2 and 1.5. 6. History of encephalitis of unclear etiology back in 2008, at that time he was initially admitted here and then transferred to [facility]. A complete neurologic workup was unremarkable. PAST SURGICAL HISTORY: 1. Transmetatarsal amputation of the right foot 12/2014. 2. Appendectomy in distant past. 3. Colonoscopy in distant past. 4. Large left inguinal hernia repair done 08/30/[address] Ray. ALLERGIES: CAT DANDER AND POLLEN. CURRENT MEDICATIONS: The patient does remember. He thinks he might have had a couple of changes since he was in our hospital last month. We will obtain his medication list tomorrow. FAMILY HISTORY: Father had coronary artery disease. Mother had Alzheimer's disease and coronary artery disease. Multiple family members with diabetes. SOCIAL HISTORY: He is and lives at home with his . He has two grown children. 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 He does drink 2 to 4 glasses of wine per day. No history of withdraw. Primary care doctor is Dr. Deep Ayala. OBJECTIVE: VITAL SIGNS: Stable. He is afebrile. GENERAL: Well-developed, well-nourished elderly male. He is alert, calm, pleasant sitting up in bed smiling, no distress what so ever. HEENT: Right eye with an ulcerated cornea and injected sclera. NEUROLOGIC: He is neurologically intact otherwise. NECK: Supple. LUNGS: Clear. HEART: Regular. ABDOMEN: Soft. SKIN: Clear. He has venous stasis changes at the bilateral lower extremities. There is no obvious infection, redness, or warmth. Amputation noted to the right foot. LABS: CBC with a white count of 10.1, hemoglobin 14.1, hematocrit 40.8, platelets of 211. ERS of 31. Chemistry panel 134, potassium 5.0, chloride 104, carbon dioxide 22, BUN of 51, creatinine 2.1, glucose of 292. C-reactive protein was 0.5. Troponin less than 0.01. Urinalysis 3+ glucose otherwise, clear. DIAGNOSTICS: CT of the brain showing global diffuse atrophy with microvascular ischemic changes. No acute intracranial abnormalities are identified. ASSESSMENT: 1. Ophthalmitis related to his pseudomonal infection to the eye. 2. Headache secondary to above. 3. Multiple other chronic medical problems at baseline. 4. Acute kidney injury in the context of chronic kidney disease of unclear etiology. PLAN: I have referred him to observation. We will treat him with gentle IV fluid rehydration overnight. Will avoid all nephrotoxic agents. IV medications for pain and nausea as needed. In the morning we will reevaluate with lab work and discuss this case with his coin machine servicer repairer. In the morning we will also clarify his medications and eye drops and get these resumed. Deep venous thrombosis prophylaxis not indicated. Further care dictated by his clinical course. JOB: [id number]
[2016-12-14 07:24] LABS: ALB/GLOB RATIO 1.1 (>1.0); ALBUMIN 4.1 gm/dL (3.5-5.7); CALCIUM 10.6 mg/dL (8.6-10.3)
[2016-12-14] MEDS: OXYCODONE/ACETAMINOPHEN 5/325 MG TABLET PO PRN ×2 (08:13→08:59)
[2016-12-14] MEDS: HYDROMORPHONE HCL 1 MG/ML SYRINGE IV PRN ×7 (08:59→23:36)
[2016-12-14] MEDS ORDERED: HYDROMORPHONE HCL 2 MG TABLET PO PRN (09:46)
[2016-12-14] MEDS: HYDROMORPHONE HCL 2 MG TABLET PO PRN ×6 (12:24→23:35)
--- NOTE | 2016-12-14 12:47 | DS ---
Abraham Bedoya ADMIT DATE: 12/14/2016 DISCHARGE DATE: 12/14/2016 ADMIT DIAGNOSES: 1. Ophthalmitis related to a pseudomonal infection in the right eye. 2. Severe headache secondary to above. 3. Acute kidney injury in the context of chronic kidney disease. 4. Multiple other chronic medical problems at baseline. DISCHARGE DIAGNOSES: 1. Ophthalmitis related to a pseudomonal infection in the right eye. 2. Severe headache secondary to above. 3. Acute kidney injury in the context of chronic kidney disease. 4. Multiple other chronic medical problems at baseline. 5. Resolution of acute kidney injury. ADMIT HISTORY AND PHYSICAL: Please see my dictated note for details. Briefly, Mr. Bedoya is a 71-year-old male. In the last two weeks he has been diagnosed with a pseudomonas infection in the eye and he is being followed by Dr. Maurilio kay at [facility]. He is on multiple different antibiotics drops and other ophthalmic drops. He has had a right sided headache that has been progressively worsening over the last week or so. He was actually seen on the morning of 12/13/2016 by his broomcorn seeder and it appeared that everything was clearing appropriately in the eye, however, on the late evening of 12/13/2016 he had worsening of his right sided headache. In the emergency room, he was worked up with a head CT. He had an unremarkable sed rate and CRP. He did have a mild bump in his creatinine up to 2.1 with the baseline being in the mid 1's. Emergency room physician did talk with an broomcorn seeder up at [facility] who recommended supportive care overnight here and contacting the patient's regular broomcorn seeder in the morning. HOSPITAL COURSE: He was admitted. His pain was controlled with IV Dilaudid and he actually had a very good night. On the morning of discharge his creatinine had returned to baseline. He was feeling well. He was not getting relief from Percocet and did require again IV Dilaudid and we have elected to transition him to oral Dilaudid upon discharge. On the morning of 12/14/2015 I did discuss his case with his broomcorn seeder, Dr. Maurilio kay at [facility]. He felt that Mr. Bedoya was safe to discharge home with appropriate medication for pain and nausea with plans for follow up next week as scheduled. DISCHARGE MEDICATIONS: 1. Hydromorphone 2 mg tablets 1 to 3 tablets every 4 hours as needed for pain, #90 with no refills. 2. Promethazine 25 mg tablets 1 tablet by mouth every 4 hours as needed for nausea, #30 with no refills. All other medications as prior to admit as follows: 1. Glipizide 10 mg by mouth daily. 2. Lantus 40 units subcutaneous every bedtime. 3. Metformin 1000 by mouth twice daily. 4. Co-Q 10 daily. 5. Invokana 100 mg by mouth daily. 6. Hydrochlorothiazide 25 mg by mouth daily. 7. Eliquis 5 mg by mouth twice daily. 8. Amlodipine 10 mg by mouth twice daily. 9. Diltiazem 180 by mouth daily. 10. Lisinopril 20 mg by mouth twice daily. 11. Cleocin 150 by mouth four times daily. 12. Cyclogyl drops as prior to admit. 13. Doxycycline 100 mg by mouth twice daily. 14. Vancomycin drops as prior to admit. 15. Moxifloxacin drops as prior to admit. 16. Prednisolone drops as prior admit. 17. Tobramycin drops as prior to admit. 18. Triamcinolone topically as needed. 19. Imdur 60 mg by mouth every morning. DISCHARGE FOLLOW UP: Will be with Dr. Thorpe at the [facility] next week as scheduled. Follow up with Dr. Ayala as needed. JOB: [id number] CC: Dr. Deep Thorpe at [facility] in [place]
[2016-12-14 19:21] VITALS: BMI 30.4
[2016-12-14] MEDS: ACETAMINOPHEN 325 MG TABLET PO PRN (19:36)
[2016-12-14] MEDS: INSULIN ASPART (DOSE) 100 UNITS/1 ML SUB-Q PRN (23:36)
[2016-12-15] MEDS: INSULIN GLARGINE (DOSE) 100 UNITS/ML UNIT SUB-Q SCH (01:22)
[2016-12-15] MEDS: HYDROMORPHONE HCL 1 MG/ML SYRINGE IV PRN ×10 (01:54→18:13)
[2016-12-15] MEDS: HYDROMORPHONE HCL 2 MG TABLET PO PRN ×7 (03:35→18:13)
[2016-12-15] MEDS: CLINDAMYCIN HCL 150 MG CAPSULE PO SCH ×2 (08:56→13:28)
[2016-12-15] MEDS ORDERED: AMLODIPINE BESYLATE 5 MG TABLET PO SCH (09:00)
[2016-12-15] MEDS ORDERED: DOXYCYCLINE HYCLATE 100 MG TABLET PO SCH (09:00)
[2016-12-15] MEDS ORDERED: APIXABAN 5 MG TABLET PO SCH (09:00)
[2016-12-15] MEDS ORDERED: TOBRAMYCIN SULFATE 0.3% OD SCH (09:00)
[2016-12-15] MEDS ORDERED: HYDROCHLOROTHIAZIDE 25 MG TABLET PO SCH (09:00)
[2016-12-15] MEDS ORDERED: [UNRECOGNIZED DRUG - OTHER] OD SCH (09:00)
[2016-12-15] MEDS ORDERED: [UNRECOGNIZED DRUG - OTHER] OD SCH (09:00)
[2016-12-15] MEDS: MOXIFLOXACIN HCL OD SCH ×2 (09:00→15:19)
[2016-12-15] MEDS ORDERED: GLIPIZIDE 10 MG TABLET PO SCH (09:00)
[2016-12-15] MEDS ORDERED: METFORMIN HCL 1,000 MG TABLET PO SCH (09:00)
[2016-12-15] MEDS ORDERED: LISINOPRIL 20 MG TABLET PO SCH (09:00)
[2016-12-15] MEDS ORDERED: CYCLOPENTOLATE HCL 1% 40 GTTS/2 ML BOT SOLN.DROP OD SCH (09:00)
[2016-12-15] MEDS ORDERED: TRIAMCINOLONE ACET CREAM 0.1% 30 APPLIC/15 G TUBE TP SCH (09:00)
[2016-12-15] MEDS ORDERED: DILTIAZEM HCL CD 180 MG CAPSULE PO SCH (09:00)
[2016-12-15] MEDS ORDERED: (Canagliflozin [Invokana] 100 MG) PO SCH ×2 (09:00→10:00)
[2016-12-15] MEDS ORDERED: ISOSORBIDE MONONITRATE 60 MG TAB.SR PO SCH (09:00)
[2016-12-15] MEDS ORDERED: VANCOMYCIN 25 MG/ML OD SCH (10:00)
[2016-12-15] MEDS: TOBRAMYCIN OD SCH ×2 (10:00→15:20)
[2016-12-15] MEDS: [UNRECOGNIZED DRUG - OTHER] OD SCH ×3 (11:55→15:19)
[2016-12-15] MEDS: INSULIN ASPART (DOSE) 100 UNITS/1 ML SUB-Q PRN ×2 (12:27→17:12)
[2016-12-15] MEDS: ACETAMINOPHEN 325 MG TABLET PO PRN (14:14)
[2016-12-15 15:02] VITALS: BP 145/74
[2016-12-15] MEDS ORDERED: BISACODYL 10 MG SUP PR PRN (15:28)
[2016-12-15] MEDS ORDERED: DOCUSATE SODIUM 100 MG CAPSULE PO SCH (15:30)
--- NOTE | 2016-12-15 15:33 | CT ---
ORBIT, TEMP BONES W/O CON COMPARISON: CT head, 12/13/2016 HISTORY: Right periorbital cellulitis Technique: Using a [employer] Aquilion [address] scanner, images were obtained through the temporal bones. No intravenous contrast. An automated dose reduction technique was used to minimize patient radiation dose. Dose information: CTDIvol (mGy): 28.80 DLP(mGycm): 567.80 FINDINGS: Right ORBIT: Superficial periorbital soft tissue swelling. The retro-orbital fat is normal. The optic globes, optic nerve, and extraocular muscles are normal. Left orbit: Normal. Paranasal sinuses: Hypoplastic frontal sinus. Normal ethmoid sinuses. Normal right maxillary sinus with a small mucous retention cyst in floor the left maxillary sinus. Normal sphenoid sinus. Nasal passages: Normal. Facial bones: Normal. Heart,: Normal. Teeth: Extensive dental hardware. Mandible: Normal. Temporomandibular joints: Normal. Airway: Normal. Tongue: Normal. Salivary glands: Normal. Muscles: Normal. IMPRESSION: 1. Superficial right periorbital soft tissue swelling/cellulitis. The results were discussed with Paramjit Zamora 12/15/2016 at 15:30
[2016-12-15] MEDS ORDERED: IV START KIT ONE (16:05)
[2016-12-15] MEDS ORDERED: SODIUM CHLORIDE 0.9% FLUSH 10 ML ONE (16:05)
[2016-12-15] MEDS ORDERED: PUMP TUBING ONE (16:06)
[2016-12-15] MEDS ORDERED: SODIUM CHLORIDE 0.9% 250 ML IV ONE (16:07)
[2016-12-15] MEDS ORDERED: PIPERACILLIN SODIUM/TAZOBACTAM 3.375 G in NS 0.9% (MINI-BAG PLUS) 50 ML IV SCH (16:30)
[2016-12-15] MEDS ORDERED: VANCOMYCIN HCL 2 G in SODIUM CHLORIDE 0.9% 500 ML IV ONE (17:00)
[2016-12-15] MEDS ORDERED: VANCOMYCIN HCL 2 G in SODIUM CHLORIDE 0.9% 500 ML IV SCH (17:00)
--- NOTE | 2016-12-15 18:24 | TS ---
TAM ADLER [id number] DATE OF ADMISSION: 12/13/2016 DATE OF TRANSFER: 12/15/2016 TRANSFERRING DIAGNOSES: 1. Ophthalmitis, with preseptal cellulitis involving the right eye. 2. Severe headache. THE ACCEPTING FACILITY: [facility]. THE ACCEPTING PHYSICIAN: Dr. Patterson. OTHER DIAGNOSES: Include: 1. Acute kidney injury. 2. Adult-onset diabetes, complicated by neuropathy and nephropathy, treated with insulin long-term. 3. Chronic essential hypertension. 4. History of paroxysmal atrial fibrillation. 5. Chronic Stage-3 kidney disease, with a creatinine baseline of 1.2 - 1.5. 6. Peripheral vascular disease. TO SUMMARIZE THE ADMISSION AND HOSPITAL COURSE: The patient is a 71-year-old male with a complex past medical history who over the last month has been treated at the [facility] for an infection in the right eye. He reportedly was being treated for a pseudomonal infection and developed a corneal ulcer. He developed worsening right-sided headaches and periorbital pain in the last several days and presented to the emergency department on the evening of 12/13/2016. He had been seen by the [place] Cashier Or Checker Stock Clerk on the morning of 12/13/2016. Workup in the emergency department showed an elevated creatinine of 2.1. Head CT was unremarkable. He was referred to the Hospitalist Service for observation. It was felt to be ophthalmitis secondary to infection and irritation from his eye drops. Supportive care was recommended with pain management. Over the course of his stay, however, he has had persistent pain and has developed worsening swelling of the soft tissues in the periorbital region. A CT of the orbits was performed today, showing some superficial periorbital soft tissue swelling. The retro-orbital fat, optic lobes, nerves and extraocular muscles appeared to be normal, but based on his worsening symptoms and decreased visual acuity in the right eye which is just showing light perception, I spoke with the croze cutter Dr. Shannon at the [facility] and expressed a desire to transfer the patient for further ophthalmological evaluation. The family and the patient are all interested in having his eye further evaluated as well. I also spoke with the Hospitalist on duty, Dr. Patterson, who graciously agreed to accept the patient in transfer. VITAL SIGNS AT TRANSFER: VITAL SIGNS: At the time of transfer his vital signs showed a temperature of 97.8, pulse 73, blood pressure 145/74, respirations 17, oxygen saturation is 95% on room air, body mass index of 30.4 and weight 107.4 kilograms. GENERAL: This is an obese male in no acute distress. HEENT: Shows marked conjunctival swelling in the right eye, with a corneal ulceration and eye swelling, with only light perception in the right eye. He has some swelling of the soft tissues of the lid in the periorbital region, along with some redness as well. The left eye shows pupils equal, round and reactive to light. Extraocular movements are intact. Conjunctiva is not inflamed. Oropharynx shows no lesions. NECK: Supple, without lymphadenopathy or thyromegaly. LUNGS: Clear to auscultation bilaterally. CARDIOVASCULAR: Reveals a regular rate and rhythm, without a murmur. EXTREMITIES: Showed no peripheral edema. LABS: Laboratory studies on the day of discharge showed a white count of 9.1, performed yesterday, a hemoglobin of 15.7 and a platelet count of 223,000. His chemistry profile last performed on 12/14/2016 showed a creatinine of 1.4. Normal electrolytes. DISPOSITION: To [facility] for further evaluation of the patient's complicated eye condition. CONDITION AT THE TIME OF TRANSFER: Stable. PLAN: He will be going by ground ACLS transport. A copy of his orbital CT has been sent by the PACS system to [facility]. cc: [facility], Attention Dr. Leonardo [facility], Attention Dr. Shiva Ayala
[2016-12-15] MEDS ORDERED: INSULIN GLARGINE (DOSE) 100 UNITS/ML UNIT SUB-Q SCH (21:00)
[2016-12-16] MEDS ORDERED: VANCOMYCIN HCL IV SCH (05:00)
[2016-12-16] MEDS ORDERED: SODIUM CHLORIDE 0.9% IV SCH (05:00)
== END 2016-12-15 18:15 | disposition short-term general hospital (02) | DRG 124 ==
LOC: ED 19:33 → MS 23:54 → OBSVTOIN 12-15 14:30
PROVIDERS: ADMIT Family Medicine; ATTEND Family Medicine
DX: H10.9 Unspecified conjunctivitis (principal); G04.90 Encephalitis and encephalomyelitis, unspecified; N17.9 Acute kidney failure, unspecified; M86.8X8 Other osteomyelitis, other site; R51 Headache; E11.21 Type 2 diabetes mellitus with diabetic nephropathy; E11.40 Type 2 diabetes mellitus with diabetic neuropathy, unspecified; I48.91 Unspecified atrial fibrillation; R00.1 Bradycardia, unspecified; I12.9 Hypertensive chronic kidney disease with stage 1 through stage 4 chronic kidney disease, or unspecified chronic kidney disease; N18.3 Chronic kidney disease, stage 3 (moderate); Z79.4 Long term (current) use of insulin; E11.51 Type 2 diabetes mellitus with diabetic peripheral angiopathy without gangrene